=== PATIENT | male | born 1970 | race Two or more races ===

== ENCOUNTER 2017-02-01 21:47 | Emergency (ER) | payer SELFPAY ==
[~2017-02-01] VITALS: Ht 188 cm; Wt 108.9 kg
[~2017-02-01 21:47] MED LIST: BACTRIM DS TAB1 EAC1 ORAL; BACTRIM-DS1 EA PO; CEPHALEXIN500 MG PO; CLINDAMYCIN HC300 MG ORAL; KEFLEX500 MG ORAL
[2017-02-01] MEDS ORDERED: MULTIVITAMINS1 EAC2 ORAL (22:08)
[2017-02-01] MEDS ORDERED: DOXYCYCLINE MO100 MG ORAL (22:10)
[2017-02-01] MEDS ORDERED: IBUPROFEN600 MG ORAL (22:10)
[2017-02-01] MEDS ORDERED: BACTROBAN CR1 APPLIC TOPIC (22:10)
--- NOTE | 2017-02-01 22:10 | Emergency Room Report ---
History of Present Illness General Chief Complaint: To Be Triaged Source: Patient Present Illness HPI Is a 46-year-old male with recurrent abscess to his buttock. He presents with an abscess his been there for 3 or 4 days. Painful. Localized the left buttock. No fever or chills. No drainage. Similar to previous presentations. No other complaint. Allergies: Coded Allergies: No Known Allergies (Unverified , 09/07/12) Patient History Past Medical History: see triage record, old chart reviewed Past Surgical History: other Pertinent Family History: none Social History: Reports: smoking Immunizations: UTD Reviewed Nursing Documentation: PMH: Agreed, PSxH: Agreed Review of Systems Eye: Denies: blurred vision, eye pain ENT: Denies: ear pain, nose congestion, throat swelling Respiratory: Denies: cough, shortness of breath Cardiovascular: Denies: chest pain, palpitations Gastrointestinal: Denies: abdominal pain, diarrhea, nausea, vomiting Musculoskeletal: Denies: back pain, joint pain Skin: Denies: rash Neurological: Denies: headache, numbness Endocrine: Denies: increased thirst, increased urine Hematologic/Lymphatic: Denies: easy bruising All Other Systems: negative except mentioned in HPI Physical Exam vitals unremarkable Sp02 EP Interpretation: reviewed, normal General Appearance: well appearing, no apparent distress, alert Head: normocephalic, atraumatic Eyes: bilateral eye EOMI, bilateral eye PERRL ENT: hearing grossly normal, normal pharynx Neck: full range of motion, supple, no meningismus Respiratory: chest non-tender, lungs clear, normal breath sounds Cardiovascular #1: regular rate, rhythm, no murmur Gastrointestinal: normal bowel sounds, non tender, no mass, no organomegaly, no bruit, non-distended Rectal: other - Left buttock with indurated area of 4-5 cm. Central fluctuant area of 3 cm. No drainage. Musculoskeletal: back normal, gait/station normal, normal range of motion Psychiatric: mood/affect normal Skin: warm/dry Procedures Incision and Drainage Incision and Drainage : Consent: Verbal Site: Left buttock Blade Size: 11 I & D Procedure: betadine prep, sterile drapes applied, sterile dressing applied, gauze wick placed Wound Location: other - Buttock Anesthesia: Lidocaine w/ Epi Volume Anesthetic (ccs): 4 Patient Tolerated: Well Complications: None Medical Decision Making Diagnostic Impression: Primary Impression: Left buttock abscess ER Course Patient with left buttock abscess. No evidence of deep infection. No evidence of necrotizing fasciitis. Most likely MRSA. We'll discharge home with antibiotics. Status: improved Disposition: HOME, SELF-CARE Condition: Stable Scripts Ibuprofen* (MOTRIN*) 600 Mg Tablet 600 MG ORAL THREE TIMES A DAY, #30 TAB 0 Refills Prov: ALFIE OLMSTEAD M.D. 02/01/17 Doxycycline Monohydrate* (DOXYCYCLINE MONOHYDRATE*) 100 Mg Capsule 100 MG ORAL Q12H, #14 CAP 0 Refills Prov: ALFIE OLMSTEAD M.D. 02/01/17 Mupirocin Calcium (Bactroban) 15 Gm Cream..g. 1 APPLIC TOPIC THREE TIMES A DAY, #30 GM Prov: ALFIE OLMSTEAD M.D. 02/01/17 Additional Instructions: followup with your Dr.in 2 to 3 days for recheck and pack removal. Return if symptom worsen. ALFIE OLMSTEAD M.D. Feb 01, 2017 22:10
[2017-02-01 22:41] VITALS: BP 128/88
== END 2017-02-01 22:34 | disposition home or self-care (01) ==
LOC: EMR 22:00
DX: L02.31 Cutaneous abscess of buttock (principal); F17.200 Nicotine dependence, unspecified, uncomplicated
CPT/HCPCS: 10060

== ENCOUNTER 2017-12-16 22:03 | Emergency (ER) | payer BC ==
[~2017-12-16] VITALS: Ht 188 cm; Wt 117.9 kg
[~2017-12-16 22:03] MED LIST changes: +BACTROBAN CR1 APPLIC TOPIC; +DOXYCYCLINE MO100 MG ORAL; +IBUPROFEN600 MG ORAL; +MULTIVITAMINS1 EAC2 ORAL
[2017-12-16 22:11] VITALS: BP 110/69
[2017-12-16] MEDS ORDERED: BACTROBAN CR1 APPLIC TOPIC (22:58)
[2017-12-16] MEDS ORDERED: AUGMENTIN 875-1 EAC1 ORAL (22:58)
[2017-12-16 23:00] VITALS: BP 0/0
--- NOTE | 2017-12-17 01:32 | Emergency Room Report ---
History of Present Illness General Chief Complaint: Skin Rash/Abscess Source: Patient Present Illness HPI 47-year-old male presents ED for evaluation of pain and swelling to right buttock for the last week. States he's had recurring abscesses to his buttock. Has required multiple incision and drainages over the years. Pain is throbbing, 9 out of 10, nonradiating. Denies fevers or chills. Denies any discharge. No other aggravating or relieving factors. 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 Review of Systems All Other Systems: negative except mentioned in HPI Physical Exam Vital Signs Date Time Temp Pulse Resp B/P (MAP) Pulse Ox O2 Delivery O2 Flow Rate FiO2 12/16/17 22:11 98.5 84 16 110/69 98 Room Air 98.4 Sp02 EP Interpretation: reviewed, normal General Appearance: no apparent distress, alert, GCS 15, non-toxic Head: normocephalic Eyes: bilateral eye normal inspection, bilateral eye PERRL ENT: normal ENT inspection Neck: normal inspection Respiratory: normal inspection Cardiovascular #1: normal inspection Gastrointestinal: normal inspection Rectal: deferred Genitourinary: no CVA tenderness Musculoskeletal: normal inspection Neurologic: alert, oriented x3, responsive, motor strength/tone normal, sensory intact, speech normal Psychiatric: judgement/insight normal, memory normal, mood/affect normal, no suicidal/homicidal ideation Skin: other - 3x3cm area of induration/erythema to R buttock. no fluctuance. no discharge. scarring noted Lymphatic: normal inspection Procedures Incision and Drainage Incision and Drainage : Consent: Verbal Blade Size: 11 I & D Procedure: betadine prep, sterile drapes applied, sterile dressing applied Wound Location: other - R buttock Wound's Depth, Shape: other - abscesss Wound Explored: blood Anesthesia: 1% Lidocaine Volume Anesthetic (ccs): 3 Splint Applied?: No Sling Applied?: No Patient Tolerated: Well Complications: None Medical Decision Making Diagnostic Impression: Primary Impression: Cellulitis of buttock ER Course Hospital Course 47-year-old male presents ED with swelling and pain to right buttock. h/o recurrent abscess Clinical course Patient placed on stretcher. After initial history, physical exam reveals male in no acute distress. On exam there is area of induration and swelling to right buttock. Old scarring noted. No fluctuance. No discharge. Appears more cellulitic but given recurrent abscesses we attempted I and D under local anesthesia. Despite adequate wound exploration there was no purulent discharge. Only blood. Dressing applied. Discussed findings with patient. Patient states he did see a surgeon previously and they only attempted I and D at bedside. I believe patient does require deeper exploration of the recurrent abscess. I will provide him with surgical referral Diagnosis - cellulitis of buttock Stable and discharged to home with prescription for augmentin. wound Care instructions given. Followup with PMD. Return to ED if any signs of infection develop Last Vital Signs Date Time Temp Pulse Resp B/P (MAP) Pulse Ox O2 Delivery O2 Flow Rate FiO2 12/16/17 23:00 0/0 12/16/17 22:11 209.3 84 16 98 Room Air 209.3 Status: improved Disposition: HOME, SELF-CARE Condition: Stable Scripts Amoxicillin/Potassium Clav 875-125* (AUGMENTIN 875-125 TABLET*) 1 Each Tablet 1 TAB ORAL TWICE A DAY for 10 Days, TAB Prov: Carlos A Rose MD 12/16/17 Mupirocin Calcium (Bactroban) 15 Gm Cream..g. 1 APPLIC TOPIC THREE TIMES A DAY, #30 GM Prov: Carlos A Rose MD 12/16/17 Referrals: Darío Galicia Patient Instructions: Cellulitis, [id number] Carlos A Rose MD December 17, 2017 01:32
== END 2017-12-16 23:00 | disposition home or self-care (01) ==
LOC: EMR 22:57
DX: L03.317 Cellulitis of buttock (principal)
CPT/HCPCS: 10060; 99284